=== PATIENT | male | born 1990 | race Caucasian/White ===

== ENCOUNTER 2019-03-12 18:57 | Emergency (ER) | payer OTHER ==
[~2019-03-12] VITALS: Ht 177.8 cm; Wt 81.7 kg
== END 2019-03-12 20:15 | disposition home or self-care (01) ==
LOC: ER 18:57
DX: S60.032A Contusion of left middle finger without damage to nail, initial encounter (principal); S60.411A Abrasion of left index finger, initial encounter; S60.415A Abrasion of left ring finger, initial encounter; W22.8XXA Striking against or struck by other objects, initial encounter
CPT/HCPCS: 73130; 99283-25